=== PATIENT | male | born 1965 | race Caucasian/White ===

== ENCOUNTER → 2018-10-30 | Outpatient (CLI) | payer OTHER ==
[~2018-10-30] MED LIST: ? CHOLESTEROL MED; ALBU90OI61; Advil200 M1; FENO160; HYDACE5 PO; OMEP20ER PO; OXYACE5T PO; PIOG15; RANI150
== END | disposition home or self-care (01) ==
LOC: LAB SHORT 13:46 → PLD 13:46
DX: L57.8 Other skin changes due to chronic exposure to nonionizing radiation (principal)
CPT/HCPCS: 88305

== ENCOUNTER 2019-03-30 14:04 | Inpatient (IN) | payer OTHER ==
[~2019-03-30] VITALS: Ht 170.2 cm; Wt 82.7 kg
[~2019-03-30 14:04] MED LIST changes: -OMEP20ER PO
[2019-03-30 14:27] LABS: BASOPHILS ABSOLUTE AUTO 0.05 K/mm3 (0.00-0.23); BASOPHILS PERCENT AUTO 0 % (0-2); EOSINOPHILS ABSOLUTE AUTO 0.03 K/mm3 (0.00-0.68); EOSINOPHILS PERCENT AUTO 0 % (0-6); Hemoglobin 16.2 g/dL (13.5-17.5); IMMATURE GRAN ABSOLUTE AUTO 0.05 K/mm3 (0.00-0.10); IMMATURE GRAN PERCENT AUTO 0 % (0-1); LYMPHOCYTES ABSOLUTE AUTO 2.15 K/mm3 (0.84-5.20); LYMPHOCYTES PERCENT AUTO 17 % (21-46); MONOCYTES ABSOLUTE AUTO 0.76 K/mm3 (0.16-1.47); MONOCYTES PERCENT AUTO 6 % (4-13); Mean Corpuscular HGB 29.2 pg (26.0-34.0); Mean Corpuscular HGB Conc 33.1 g/dL (31.5-36.5); Mean Corpuscular Volume 88 fL (80-100); Mean Platelet Volume 10.7 fL (9.1-12.4); NEUTROPHILS ABSOLUTE AUTO 9.82 K/mm3 (1.96-9.15); NEUTROPHILS PERCENT AUTO 76 % (41-73); Platelet Count 228 K/mm3 (150-400); RDW Coefficient Variation 12.7 % (11.7-14.2); RDW Standard Deviation 41.2 fL (35.1-46.3); Red Blood Cell Count 5.54 M/mm3 (4.30-5.90); White Blood Cell Count 12.86 K/mm3 (4.00-11.30)
[2019-03-30 14:59] LABS: Alanine Aminotransfer (ALT/SGP 44 U/L (12-78); Albumin/Globulin Ratio 0.7 (0.8-1.8); Alk Phos 241 U/L (50-136); Anion Gap 7 mmol/L (6-16); Aspartate Aminotrans (AST/SGOT 31 U/L (12-37); Bilirubin, Total 0.4 mg/dL (0.1-1.0); Blood Urea Nitrogen 23 mg/dL (8-24); Bun/Creatinine Ratio 23.1 (12.0-20.0); CO2, Blood 27 mmol/L (21-32); Calcium, Blood 9.5 mg/dL (8.5-10.1); Chloride, Blood 100 mmol/L (98-108); Globulin, Blood 4.5 g/dL (2.2-4.0); Glomerular Filtration Rate >60 (60-); Glucose, Blood 434 mg/dL (70-99); Potassium, Blood 4.9 mmol/L (3.5-5.5); Sodium, Blood 134 mmol/L (136-145); Total Protein, Blood 7.5 g/dL (6.4-8.2)
[2019-03-30] MEDS ORDERED: SPIRIVA RESPIMAT4 GM INH (15:44)
[2019-03-30] MEDS ORDERED: INSULANPEN SC (15:54)
[2019-03-30] MEDS ORDERED: Metformin HCl500 MG PO (15:56)
[2019-03-30] MEDS ORDERED: BUPR150ER PO (16:03)
[2019-03-30] MEDS ORDERED: ATOR40TA PO (16:03)
[2019-03-30] MEDS ORDERED: Fish Oil 10001000 MG PO (16:04)
--- NOTE | 2019-03-30 18:56 | NUR ---
PATIENT ARRIVES ABOUT 1816 VIA W/C. ALERT AND ORIENTED. AMBULATORY W/STEADY GAIT. CRACKLES LOWER LOBES. BILATERAL TOES RED AND STS "HAVE DIABETES AND HAVE BEEN THAT WAY." DOES NOT TAKE ANY OF HIS MEDS. DINNER ORDERED. ORIENTED TO ROOM. AWARE TO CALL IF NEEDS TO USE BATHROOM. EXPLAINED STRICT I&O. WCTM.
--- NOTE | 2019-03-30 21:15 | NUR ---
PT ADAMANT ABOUT GOING OUTSIDE TO SMOKE. EDUCATED PT ON REPRECUSSIONS OF THIS AND WHY IT WAS IMPORTANT HE DID NOT GO OUTSIDE AND SMOKE. PT STILL CONTINUED TO GO OUTSIDE AND SAID HE WOULD BE BACK IN SEVERAL MINUTES. PT WAS ON 2 L OF O2 UP UNTIL THIS EVENING. ONLY SATTING 91% ON RA. PT ALSO HAS A HEART MONITOR ON WHICH DOES NOT GET READINGS ONCE OUTSIDE. PT UNDERSTANDS AND INSISTED REGARDLESS THAT HE WAS GOING OUTSIDE. PT WALKED OUTSIDE AT THIS TIME. DISCUSSED WITH HUMAN SERVICES ASSISTANT. WILL CALL MD TO SEE ABOUT GETTING A NICOTINE PATCH.
[2019-03-30 21:33] LABS: Glucose, Blood 496 mg/dL (70-99)
--- NOTE | 2019-03-30 22:25 | NUR ---
PT'S BLOOD SUGARS ELEVATED THIS EVENING. 434 DOWN IN ED AT 1410 AND PT DID NOT RECIEVE ANY COVERAGE AT THAT TIME. RECHECKED THIS EVENING AT 2012 AND CBG WAS 472. MEDICATED AT THAT TIME WITH 12 UNITS NOVOLOG AND 20 UNITS LANTUS. RECHECKED APPROX A HALF HOUR LATER AND PT'S CBG READ "HI" ON OUR MACHINES. LAB CAME TO DRAW TO CONFIRM AND PT'S BLOOD GLUCOSE WAS 496. NOTIFIED BRODY TURCIOS. NEW ORDERS TO CHANGE PT TO HSS HUMALOG AC & HS. RECHECK CBG IN ONE HOUR AND GIVE FIRST DOSE BASED ON HSS AND THEN TO RECHECK IN AM. PT ALSO AGREED TO WEAR NICOTINE PATCH. SPOKE WITH BRODY TURCIOS ABOUT THIS WELL. NEW ORDER FOR 21 MG NICOTINE PATCH. WILL PLACE ON PT.
[2019-03-31 05:21] LABS: BASOPHILS ABSOLUTE AUTO 0.02 K/mm3 (0.00-0.23); BASOPHILS PERCENT AUTO 0 % (0-2); EOSINOPHILS PERCENT AUTO 0 % (0-6); IMMATURE GRAN ABSOLUTE AUTO 0.06 K/mm3 (0.00-0.10); IMMATURE GRAN PERCENT AUTO 1 % (0-1); LYMPHOCYTES ABSOLUTE AUTO 0.83 K/mm3 (0.84-5.20); LYMPHOCYTES PERCENT AUTO 7 % (21-46); MONOCYTES ABSOLUTE AUTO 0.19 K/mm3 (0.16-1.47); MONOCYTES PERCENT AUTO 2 % (4-13); Mean Corpuscular HGB 28.6 pg (26.0-34.0); Mean Corpuscular HGB Conc 33.3 g/dL (31.5-36.5); Mean Corpuscular Volume 86 fL (80-100); Mean Platelet Volume 10.6 fL (9.1-12.4); NEUTROPHILS ABSOLUTE AUTO 10.46 K/mm3 (1.96-9.15); NEUTROPHILS PERCENT AUTO 91 % (41-73); Platelet Count 227 K/mm3 (150-400); RDW Coefficient Variation 12.8 % (11.7-14.2); RDW Standard Deviation 39.5 fL (35.1-46.3); Red Blood Cell Count 5.25 M/mm3 (4.30-5.90); White Blood Cell Count 11.56 K/mm3 (4.00-11.30)
[2019-03-31 05:45] LABS: Anion Gap 8 mmol/L (6-16); Blood Urea Nitrogen 29 mg/dL (8-24); CO2, Blood 27 mmol/L (21-32); Calcium, Blood 9.3 mg/dL (8.5-10.1); Chloride, Blood 102 mmol/L (98-108); Creatinine, Blood 0.73 mg/dL (0.60-1.20); Glomerular Filtration Rate >60 (60-); Glucose, Blood 276 mg/dL (70-99); Potassium, Blood 4.1 mmol/L (3.5-5.5); Sodium, Blood 137 mmol/L (136-145)
--- NOTE | 2019-03-31 06:16 | NUR ---
SHIFT SUMMARY PT VERY SET IN HIS OWN WAYS. NONCOMPLIANT DIABETIC AT HOME. BLOOD SUGARS VERY ELEVATED THIS EVENING, SEE NOTE. CONTINUE TO BE HIGH BUT IMPROVED THIS AM TO 276. PT INSISTENT ON GOING OUT TO SMOKE AT START OF SHIFT, WENT OUTSIDE ONCE THEN AGREED TO HAVE NICOTINE PATCH PLACED AND HAS REMAINED IN ROOM THE REST OF THE NIGHT. PT IS VERY HARD SLEEPER, DIFFICULT TO WAKE. PT REPORTS THAT THIS IS NORMAL FOR HIM. PT HAD APPROX 1 L OUT THIS EVENING. NO ACUTE CHANGES. VSS. WILL CONTINUE TO MONITOR.
--- NOTE | 2019-03-31 19:04 | NUR ---
SUMMARY- PT A/O X3- VAGUE ORIENTATION, POOR DECISION MAKING- STATES HE HAS A HARD TIME CONTROLLING DIABETES AT HOME BECAUSE HE FORGETS TO CHECK SUGARS AND THINKS IT'S NORMAL TO HAVE LEVELS ABOVE 400 AND NOTHING COULD BRING IT LOWER. RN DID ALOT OF VERBAL TEACHING ABOUT DIABETES AND SMOKING CESSATION. PT CONT TO GO OUT TO SMOKE APPROX 4 TIMES TODAY DESPITE PT'S STATING HE WAS GOING TO TRY TO QUIT. AWARE THAT HIS TELE DOESN'T AUTO BODY MAN SIGNAL AND HE IS AT RISK GOING OUTSIDE. PT TOLERATING FOOD AND FLUIDS. I/O EVEN THIS SHIFT- GETTING LASIX BID. BLOOD SUGARS LABILE, REQUIRING 10U REG BASE PLUS SS WITH MEALS. REPOTED TO BRENTON CASAS RN
--- NOTE | 2019-04-01 03:52 | NUR ---
SHIFT SUMMARY PT RETURNED FROM OUTSIDE SMOKING JUST AFTER SHIFT REPORT. PT WANTED NICOTINE PATCH REMOVED; DONE PER PT REQUEST. PT ADMITTED FOR ACUTE DIASTOLIC HF ON TELE. PT INFORMED OF NEED TO REMAIN IN RM OR AT LEAST IN RANGE, WHILE ON TELE; ST @ 102 PER MX TECH. PT HAS NOT GONE OUT TO K AGAIN, SINCE RETURNING AT START OF SHIFT. PT HAS DONE BETTER TONIGHT AND BEEN ABLE TO SLEEP MOST OF NIGHT. PT HAD BEEN VERY NONCOMPLIANT AND IMPULSIVE WHEN ADMITTED AND THRU OUT THE DAY YESTERDAY. APPEARED TO BE GRATEFUL THAT HIS CBG'S WERE IMPROVING, WHEN TALKING TO HIM AT HS. HOWEVER, PT DOES NOT SEEM TO UNDERSTAND HOW HIS CBG'S GET SO HIGH. PT IS INDEPENDENT IN RM AND TO BTHRM. DENIED FURTHER NEEDS. CALL LT IN REACH.
--- NOTE | 2019-04-01 17:07 | NUR ---
PATIENT WAS TO DISCHARGE AND AFTER FAMILY TALKED WITH HIM AND DOCTOR HE AGREED TO STAY AND CONTINUE WITH TREATMENT. CARDIOLOGY WAS PAGED TO INFORM OF THIS CHOICE AND OF THIS TIME HAS NOT HEARD BACK. PATIENT CONTINUES TO BE NON COMPLAINT WITH HIS CARES AND UNABLE TO PROCESS THE DEGREE OF HIS CONDITION DESPITE HAVING IT EXPLAINED SIMPLY POSSIBLE BY THIS NURSE AND BOTH DOCTORS. PATIENT HAS STATED HE IS ONLY LIVING FOR HIS CATS. FAMILY BEEN PRESENT WITH PATIENT THROUGH OUT THE DAY. MEDS HAVE BEEN LATE PATIENT WILL LEAVE THE BUILDING TO SMOKE AND NOT INFORM NURSE OR STAFF OF HIS DEPARTURES. HE HAS BEEN GIVEN A NICOTINE PATCH AND HAS REMOVED IT . PATIENT HAS BEEN EXPLAINED REGARDING HIS TELE BOX AND CONTINUES TO LEAVE TO SMOKE. PATIENT APPEARS TO NOT FULLY UNDERSTAND HIS CONDITION OR THE HELP HE IS NEEDING.
--- NOTE | 2019-04-01 17:57 | NUR ---
Initial Visit: Palliative Care Consult for Advanced Care Planning. Pt is A&O and reports 4/10 by pointing at smily faces on white board. Pt reports pain is in his chest. Pt reports 3/7 anxiety due to information from staff and difficulty understanding. Pt has developmental delay. Pt's sister Hailey is present during visit. Engaged in therapeutic discussion regarding advanced care planning in a slow easy to understand conversation for Pt. Pt reports that he lives at home alone and does not have any advent beliefs. He is independent of his ADL's. Asked Pt his goals regarding his heart health. Pt states he plans to do the procedures the doctors suggest. He states that he will do what the doctors suggest and take his medications so he can care for his cat. Pt reports difficulty remembering to take his medications and is in the process of applying for medicaid to receive assistance with caregivers. Educated Pt on repercussions of non compliance with doctor recommendations including losing the ability to care for his cat. Pt reports occasional suicidal ideation. Pt reports putting one of his guns to his head and thinks about pulling the trigger. He denies having these thoughts now. Explored reasons for suicidal thoughts and Pt states because he is alone. Pt reports that he used to see a councelor and take medications but stopped because of too many medications. He also states he would forget to take his medications. Explored Pt's willingness to start seeing councelor and taking medications again. Educated Pt on benefits of routine counceling and medications. Pt states if he only has to take 1 or 2 pills he would start back on medications for depression and see a councelor. Discussed safety plan with sister including taking weapons out of Pt's house. Pt is agreeable and sister Hailey states she can place guns in her gun safe. Hailey expresses concerns with medicaid process. She reports calling [employer] office and is concerned with the lengthy process and getting started. This RN handed a check list for information that will need to be obtained to start the application process. Hailey reports being overwhelmed with other family issues currently happening and is concerned with her ability to have time to provide needs for Pt until medicaid process is complete. Offered suggestions to start simple to keep from feeling overwhelmed. Suggested having other family members help by coming in and filling medication organizer once a week and checking in on Pt daily or every other day. At this time of conversation, Pt niece is present during visit and offers to help with this suggestion. Pt and family report no other concerns at this time. Spoke with Pt's bedside nurse Yenny and she reports no concerns at this time. Plan: Will collaborate with care management regarding medicaid process. Recommend referral for psych/social counseling upon discharge. Palliative Care will remain available for therapeutic visits.
[2019-04-02 04:54] LABS: Hematocrit 46.1 % (37.0-53.0); Hemoglobin 15.3 g/dL (13.5-17.5); Mean Corpuscular HGB 28.7 pg (26.0-34.0); Mean Corpuscular HGB Conc 33.2 g/dL (31.5-36.5); Mean Corpuscular Volume 87 fL (80-100); Mean Platelet Volume 10.7 fL (9.1-12.4); Platelet Count 237 K/mm3 (150-400); RDW Coefficient Variation 12.9 % (11.7-14.2); RDW Standard Deviation 40.3 fL (35.1-46.3); Red Blood Cell Count 5.33 M/mm3 (4.30-5.90); White Blood Cell Count 11.09 K/mm3 (4.00-11.30)
[2019-04-02 05:29] LABS: Anion Gap 5 mmol/L (6-16); Blood Urea Nitrogen 34 mg/dL (8-24); Bun/Creatinine Ratio 39.7 (12.0-20.0); CO2, Blood 31 mmol/L (21-32); Calcium, Blood 8.8 mg/dL (8.5-10.1); Chloride, Blood 98 mmol/L (98-108); Creatinine, Blood 0.86 mg/dL (0.60-1.20); Glomerular Filtration Rate >60 (60-); Glucose, Blood 130 mg/dL (70-99); Potassium, Blood 4.3 mmol/L (3.5-5.5); Sodium, Blood 134 mmol/L (136-145)
--- NOTE | 2019-04-02 05:57 | NUR ---
SHIFT SUMMARY PT REPORTED DIFFICULTY FALLING ASLEEP LAST NIGHT, EST 2-3 HRS SLEEP. AOX4, FOLLOWS DIRECTIONS, SLOW TO RESPOND TO QUESTIONS. SINUS TACH W/HR 107 PER PCU ECOMMER[employer] MARKETING SPECIALIST. DENIES NAUSEA. REPORTS OCCASIONAL SOB W/ACTIVITY, DENIES ANY @REST, SPO2 >90% ON RA WITH E/U RESPIRATIONS. REPORTS 5/10 PAIN IN CHEST THAT OCCASIONALLY COMES & GOES, DENIES ANY @REST OR THE NEED FOR PAIN MEDICATION. INDEPENDENT IN ROOM, HAS GONE FOR 1 WALK THIS EVENING. ENCOURAGED PT TO STAY IN HOSPITAL SINCE HE HAD TELEMETRY IN PLACE, PT VERBALIZED UNDERSTANDING. CALL LIGHT IN ROOM.
--- NOTE | 2019-04-02 11:32 | NUR ---
Pt visit this AM. Pt reports mild anxiety due to his blood sugar running a little low. He states feeling shaky. Pt's bedside nurse is aware and has received orders to help correct blood sugars. Family present during visit. Instructed Pt and family child care centre manager Vanesa will set up appointment for Pt at [facility] behavioral unit for psych/social counceling. Pt and family express appreciation and report no concerns at this time. Gave Pt phone number to crisis unit if suicidal thoughts come back. Palliative Care will remain available.
--- NOTE | 2019-04-02 13:28 | NUR ---
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 THE PATIENT IS BEING TRANSFERRED TO PCU #3 AFTER THE PROCEDURE. THE PATIENT'S BELONGINGS WERE ALL MOVED TO THAT ROOM.
--- NOTE | 2019-04-02 19:38 | NUR ---
SHIFT SUMMARY ASSUMED CARE OF PT FROM HEART CENTER. PT HAD DIAGNOSTIC ANGIOGRAM. VS STABLE. 02 SATS >90% ON RA. BP STABLE. HR NSR. PT DENIES ANY PAIN. TR BAND IN PLACE TO RIGHT WRIST WITH NO SIGNS OF BLEEDING, HEMATOMA FORMATION, OR BRUISING AT THIS TIME. CAP REFILL LESS THAN 3 SECONDS. BERTO DRESSING TO RIGHT AC FREE FROM ANY BLEEDING OR HEMATOMA FORMATION. RIGHT GROIN SITE IS FREE FROM ANY BLEEDING, BRUISING, OR HEMATOMA FORMATION. PT EDUCATED ABOUT RESTRICTIONS DUE TO ANGIOGRAM. REPORT GIVEN TO DRESSED POULTRY GRADER RN.
--- NOTE | 2019-04-02 23:05 | NUR ---
PT REQUESTING TO GO OUTSIDE. PT ADVISED TO STAY ON UNIT AND INFORMED THAT WE ARE UNABLE TO MONITOR HIS HEART WHILE OUTSIDE. PT EDUCATED ON SMOKING CESSATION. UNRECEPTIVE TO EDUCATION PROVIDED. PT ADAMANT ON LEAVING.
--- NOTE | 2019-04-03 04:56 | NUR ---
SHIFT SUMMARY: PT STABLE POST DIAGNOSTIC ANGIOGRAM. A&O X4, VS WNL. O2 SATS STABLE ON RA; PT DENIES SOB. TR BAND REMOVED FROM RIGHT WRIST. SITE FREE OF BLEEDING OR ANY HEMATOMA FORMATION. DRESSING COVERING ACCESS SITE. NSR PER ANTIQUE FURNITURE REPAIRER. BG OF 210 COVERED WITH SCHED LANTUS. PT INDEPENDENT IN ROOM. VOIDING WELL. PT REQUESTED TO GO OUTSIDE ONCE DURING SHIFT (SEE OTHER NOTE).
[2019-04-03 06:51] LABS: BASOPHILS ABSOLUTE AUTO 0.01 K/mm3 (0.00-0.23); BASOPHILS PERCENT AUTO 0 % (0-2); EOSINOPHILS ABSOLUTE AUTO 0.08 K/mm3 (0.00-0.68); EOSINOPHILS PERCENT AUTO 1 % (0-6); Hematocrit 47.2 % (37.0-53.0); Hemoglobin 15.4 g/dL (13.5-17.5); IMMATURE GRAN ABSOLUTE AUTO 0.04 K/mm3 (0.00-0.10); IMMATURE GRAN PERCENT AUTO 0 % (0-1); LYMPHOCYTES ABSOLUTE AUTO 1.73 K/mm3 (0.84-5.20); LYMPHOCYTES PERCENT AUTO 19 % (21-46); MONOCYTES ABSOLUTE AUTO 0.58 K/mm3 (0.16-1.47); MONOCYTES PERCENT AUTO 6 % (4-13); Mean Corpuscular HGB 28.8 pg (26.0-34.0); Mean Corpuscular HGB Conc 32.6 g/dL (31.5-36.5); Mean Corpuscular Volume 88 fL (80-100); Mean Platelet Volume 10.6 fL (9.1-12.4); NEUTROPHILS ABSOLUTE AUTO 6.66 K/mm3 (1.96-9.15); NEUTROPHILS PERCENT AUTO 73 % (41-73); Platelet Count 253 K/mm3 (150-400); RDW Coefficient Variation 12.8 % (11.7-14.2); RDW Standard Deviation 41.7 fL (35.1-46.3); Red Blood Cell Count 5.35 M/mm3 (4.30-5.90)
[2019-04-03 07:10] LABS: Anion Gap 4 mmol/L (6-16); Blood Urea Nitrogen 24 mg/dL (8-24); Bun/Creatinine Ratio 29.8 (12.0-20.0); CO2, Blood 31 mmol/L (21-32); Calcium, Blood 8.6 mg/dL (8.5-10.1); Chloride, Blood 100 mmol/L (98-108); Creatinine, Blood 0.81 mg/dL (0.60-1.20); Glomerular Filtration Rate >60 (60-); Glucose, Blood 194 mg/dL (70-99); Potassium, Blood 4.1 mmol/L (3.5-5.5); Sodium, Blood 135 mmol/L (136-145)
--- NOTE | 2019-04-03 08:26 | NUR ---
ASSUMED CARE OF PT- RECIEVED REPORT FROM NIGHT MEREDITH MONTOYA. PER REPORT PT IS A SMOKER AND HAS BEEN OUTSIDE SEVERAL TIMES TO SMOKE T/O THE NIGHT. PT HAS NO C/O PAIN, DENIES N/T AND HAS NO S&S OF DISTRESS NOTED AT THE TIME OF ASSESSMENT. PLAN IS FOR PT TO DC HOME TODAY.
[2019-04-03] MEDS ORDERED: Aspir 8181 MG PO (10:26)
[2019-04-03] MEDS ORDERED: FURO40 PO (10:27)
[2019-04-03] MEDS ORDERED: POTCHL20ER PO (10:29)
--- NOTE | 2019-04-03 11:07 | NUR ---
DISCHARGE NOTE- PT WAS GIVEN VERBAL AND WRITTEN DISCHARGE INSTRUCTIONS AND ACKNOWLEDGED UNDERSTANDING OF THEM, FAMILY PRESENT FOR DISCHARGE TEACHING. PT WILL BE ESCORTED OUT VIA W/C BY THE [facility] SHORTLY.
== END 2019-04-03 11:16 | disposition home or self-care (01) | DRG 292 ==
LOC: ER 14:04 → MEDS 16:44 → ENPENDDIS 04-01 11:37 → EDPENDDIS 04-01 11:37 → PCU 04-02 13:15
PROVIDERS: Emergency Medicine; Internal Medicine; Internal Medicine Cardiovascular Disease; ADMIT Hospitalist
DX: I11.0 Hypertensive heart disease with heart failure (principal); E87.1 Hypo-osmolality and hyponatremia; I50.33 Acute on chronic diastolic (congestive) heart failure; F17.210 Nicotine dependence, cigarettes, uncomplicated; E11.65 Type 2 diabetes mellitus with hyperglycemia; E87.70 Fluid overload, unspecified; I25.10 Atherosclerotic heart disease of native coronary artery without angina pectoris; E78.5 Hyperlipidemia, unspecified; Z79.4 Long term (current) use of insulin; Z68.28 Body mass index [BMI] 28.0-28.9, adult; E66.9 Obesity, unspecified; I08.3 Combined rheumatic disorders of mitral, aortic and tricuspid valves; F89 Unspecified disorder of psychological development; F63.0 Pathological gambling; J44.9 Chronic obstructive pulmonary disease, unspecified; Z79.82 Long term (current) use of aspirin
CPT/HCPCS: 36415; 71045; 80048; 80053; 82947; 83880; 84145; 84484; 85025; 85027; 93005; 93010; 93306; 93456; 93571; 94667; 94760; 96374; 96375; 98960; 99152; 99153; 99285-25; C1769; C1887; C1894; J1644; J1650; J1940; J2250; J2930; J3010; J7030; J7042; Q9967

== ENCOUNTER 2019-04-18 19:23 | Emergency (ER) | payer OTHER ==
[~2019-04-18] VITALS: Ht 160 cm; Wt 81.7 kg
[~2019-04-18 19:23] MED LIST changes: +ATOR40TA PO; +Aspir 8181 MG PO; +BUPR150ER PO; +FURO40 PO; +Fish Oil 10001000 MG PO; +INSULANPEN SC; +Metformin HCl500 MG PO; +POTCHL20ER PO; +SPIRIVA RESPIMAT4 GM INH
[2019-04-18 19:47] LABS: BASOPHILS ABSOLUTE AUTO 0.05 K/mm3 (0.00-0.23); BASOPHILS PERCENT AUTO 1 % (0-2); EOSINOPHILS ABSOLUTE AUTO 0.13 K/mm3 (0.00-0.68); EOSINOPHILS PERCENT AUTO 1 % (0-6); Hematocrit 43.6 % (37.0-53.0); Hemoglobin 14.1 g/dL (13.5-17.5); IMMATURE GRAN ABSOLUTE AUTO 0.04 K/mm3 (0.00-0.10); IMMATURE GRAN PERCENT AUTO 0 % (0-1); LYMPHOCYTES ABSOLUTE AUTO 2.11 K/mm3 (0.84-5.20); LYMPHOCYTES PERCENT AUTO 21 % (21-46); MONOCYTES ABSOLUTE AUTO 0.64 K/mm3 (0.16-1.47); MONOCYTES PERCENT AUTO 6 % (4-13); Mean Corpuscular HGB 28.3 pg (26.0-34.0); Mean Corpuscular HGB Conc 32.3 g/dL (31.5-36.5); Mean Corpuscular Volume 87 fL (80-100); Mean Platelet Volume 10.8 fL (9.1-12.4); NEUTROPHILS ABSOLUTE AUTO 7.11 K/mm3 (1.96-9.15); NEUTROPHILS PERCENT AUTO 71 % (41-73); Platelet Count 273 K/mm3 (150-400); RDW Coefficient Variation 13.1 % (11.7-14.2); RDW Standard Deviation 40.5 fL (35.1-46.3); Red Blood Cell Count 4.99 M/mm3 (4.30-5.90); White Blood Cell Count 10.08 K/mm3 (4.00-11.30)
[2019-04-18 20:10] LABS: Alanine Aminotransfer (ALT/SGP 42 U/L (12-78); Albumin, Blood 2.8 g/dL (3.4-5.0); Albumin/Globulin Ratio 0.7 (0.8-1.8); Alk Phos 423 U/L (50-136); Anion Gap 7 mmol/L (6-16); Aspartate Aminotrans (AST/SGOT 37 U/L (12-37); Bilirubin, Total 0.4 mg/dL (0.1-1.0); Blood Urea Nitrogen 26 mg/dL (8-24); CO2, Blood 26 mmol/L (21-32); Calcium, Blood 9.3 mg/dL (8.5-10.1); Chloride, Blood 100 mmol/L (98-108); Globulin, Blood 4.2 g/dL (2.2-4.0); Glomerular Filtration Rate >60 (60-); Glucose, Blood 375 mg/dL (70-99); Potassium, Blood 4.9 mmol/L (3.5-5.5); Sodium, Blood 133 mmol/L (136-145); Troponin I 0.035 ng/mL (0.000-0.040)
[2019-04-18] MEDS ORDERED: Lisinopril2.5 MG PO (20:37)
[2019-04-18] MEDS ORDERED: METO25ER PO (20:37)
[2019-04-18] MEDS ORDERED: Prednisone20 MG PO (21:36)
== END 2019-04-18 21:55 | disposition home or self-care (01) ==
LOC: ER 19:23
PROVIDERS: Emergency Medicine
DX: J44.1 Chronic obstructive pulmonary disease with (acute) exacerbation (principal); I50.9 Heart failure, unspecified; E11.9 Type 2 diabetes mellitus without complications; F17.200 Nicotine dependence, unspecified, uncomplicated; Z79.4 Long term (current) use of insulin; Z79.82 Long term (current) use of aspirin; Z79.899 Other long term (current) drug therapy
CPT/HCPCS: 36415; 71046; 80053; 83880; 84484; 85025; 93005; 93010; 94640; 96374; 99284-25; J2930

== ENCOUNTER 2019-06-03 13:30 | Inpatient (IN) | payer OTHER ==
[~2019-06-03] VITALS: Ht 162.6 cm; Wt 85.8 kg
[~2019-06-03 13:30] MED LIST changes: -ATOR40TA PO; -Aspir 8181 MG PO; -FURO40 PO; -Fish Oil 10001000 MG PO; -INSULANPEN SC; +Lisinopril2.5 MG PO; -Metformin HCl500 MG PO; -POTCHL20ER PO; +Prednisone20 MG PO; -SPIRIVA RESPIMAT4 GM INH
[2019-06-03 14:06] LABS: BASOPHILS ABSOLUTE AUTO 0.04 K/mm3 (0.00-0.23); BASOPHILS PERCENT AUTO 0 % (0-2); EOSINOPHILS ABSOLUTE AUTO 0.02 K/mm3 (0.00-0.68); EOSINOPHILS PERCENT AUTO 0 % (0-6); Hematocrit 44.1 % (37.0-53.0); Hemoglobin 14.2 g/dL (13.5-17.5); IMMATURE GRAN ABSOLUTE AUTO 0.04 K/mm3 (0.00-0.10); IMMATURE GRAN PERCENT AUTO 0 % (0-1); LYMPHOCYTES ABSOLUTE AUTO 1.48 K/mm3 (0.84-5.20); LYMPHOCYTES PERCENT AUTO 15 % (21-46); MONOCYTES ABSOLUTE AUTO 0.59 K/mm3 (0.16-1.47); MONOCYTES PERCENT AUTO 6 % (4-13); Mean Corpuscular HGB 28.6 pg (26.0-34.0); Mean Corpuscular HGB Conc 32.2 g/dL (31.5-36.5); Mean Corpuscular Volume 89 fL (80-100); Mean Platelet Volume 10.9 fL (9.1-12.4); NEUTROPHILS ABSOLUTE AUTO 7.81 K/mm3 (1.96-9.15); NEUTROPHILS PERCENT AUTO 78 % (41-73); Platelet Count 222 K/mm3 (150-400); RDW Standard Deviation 44.8 fL (35.1-46.3); Red Blood Cell Count 4.97 M/mm3 (4.30-5.90); White Blood Cell Count 9.98 K/mm3 (4.00-11.30)
[2019-06-03 14:25] LABS: Albumin, Blood 3.2 g/dL (3.4-5.0); Albumin/Globulin Ratio 0.9 (0.8-1.8); Bilirubin, Total 1.2 mg/dL (0.1-1.0); Bun/Creatinine Ratio 26.4 (12.0-20.0); Creatinine, Blood 1.48 mg/dL (0.60-1.20); Globulin, Blood 3.7 g/dL (2.2-4.0); Potassium, Blood 5.8 mmol/L (3.5-5.5); Total Protein, Blood 6.9 g/dL (6.4-8.2)
[2019-06-03] MEDS ORDERED: Flomax0.4 MG PO (15:42)
[2019-06-03 16:07] LABS: Bicarbonate Venous 21.1 mmol/L (24.0-30.0); PCO2 Venous 43.9 mmHg (38-42); PO2 Venous 105 mmHg (38-42); pH Blood Venous 7.31 (7.34-7.37)
[2019-06-03] MEDS ORDERED: Metformin HCl500 MG PO (17:02)
[2019-06-03] MEDS ORDERED: Zantac150 MG PO (17:02)
[2019-06-03] MEDS ORDERED: ATOR40TA PO (17:04)
[2019-06-03] MEDS ORDERED: Aspir 8181 MG PO (17:04)
[2019-06-03] MEDS ORDERED: FURO40 PO (17:04)
[2019-06-03] MEDS ORDERED: POTCHL20ER PO (17:04)
[2019-06-03] MEDS ORDERED: ENTRESTO 49 MG1 EACH PO (17:05)
[2019-06-03] MEDS ORDERED: METO25ER PO (17:05)
[2019-06-03] MEDS ORDERED: SPIRIVA RESPIMAT4 GM INH (17:06)
[2019-06-03] MEDS ORDERED: BUPR150ER PO (17:06)
[2019-06-03] MEDS ORDERED: Fish Oil 10001000 MG PO (17:11)
[2019-06-03] MEDS ORDERED: INSULANPEN SC (17:12)
[2019-06-03] MEDS ORDERED: OMEP20ER PO (17:36)
[2019-06-03 20:21] LABS: Bun/Creatinine Ratio 28.1 (12.0-20.0); Calcium, Blood 8.3 mg/dL (8.5-10.1); Creatinine, Blood 1.35 mg/dL (0.60-1.20); Potassium, Blood 5.4 mmol/L (3.5-5.5); Troponin I 0.054 ng/mL (0.000-0.040)
[2019-06-03] MEDS ORDERED: ATOR20 PO (21:03)
[2019-06-03] MEDS ORDERED: POTA10T PO (21:07)
[2019-06-03] MEDS ORDERED: Zantac150 MG (21:09)
[2019-06-03 21:39] LABS: Source, Urine Clean Catch
[2019-06-03 21:43] LABS: Bilirubin, Urine Neg (Neg); Blood, Urine Neg (Neg); Glucose Qualitative, Urine 4+ (Neg); Ketones, Urine Neg (Neg); Leukocyte Esterase, Urine Neg (Neg); Nitrite, Urine Neg (Neg); Protein, Urine 3+ (Neg); Urobilinogen, Urine 1+ (Normal)
[2019-06-03 21:51] LABS: Color, Urine Yellow (P-Yellow)
[2019-06-03 21:52] LABS: Appearance, Urine Clear (Clear)
[2019-06-03 21:53] LABS: Bacteria Rare /hpf; Hyaline Casts 0-2 /lpf (0-2); Red Blood Cells, Urine 0-2 /hpf (0-2); Squamous Epithelial Cells Rare /hpf (Few); White Blood Cells, Urine 0-2 /hpf (0-5)
[2019-06-03 22:21] LABS: Glucose, Blood 509 mg/dL (70-99)
--- NOTE | 2019-06-03 22:31 | NUR ---
BLOOD GLUCOSE >500: HOSPITALIST NOTIFIED. ORDERS TO GIVE THE LANTUS 10u AND SCALE COVERAGE OF HUMALOG 12u. RECHECK IN ONE HOUR THEN CALL BACK WITH RESULTS.
--- NOTE | 2019-06-04 00:24 | NUR ---
HOSPITALIST NOTIFIED: RE: BLOOD GLUCOSE RECHECK OF 462. ORDERS TO COVER WITH HULALOG 12u NOW, RECHECK IN TWO HOURS. CALL WITH RESULTS.
[2019-06-04 03:30] LABS: Hematocrit 43.4 % (37.0-53.0); Mean Corpuscular HGB 29.3 pg (26.0-34.0); Mean Corpuscular HGB Conc 32.3 g/dL (31.5-36.5); Mean Corpuscular Volume 91 fL (80-100); Mean Platelet Volume 10.7 fL (9.1-12.4); Platelet Count 232 K/mm3 (150-400); RDW Coefficient Variation 13.9 % (11.7-14.2); RDW Standard Deviation 46.3 fL (35.1-46.3); Red Blood Cell Count 4.78 M/mm3 (4.30-5.90); White Blood Cell Count 8.96 K/mm3 (4.00-11.30)
[2019-06-04 03:52] LABS: Calcium, Blood 8.4 mg/dL (8.5-10.1); Creatinine, Blood 1.43 mg/dL (0.60-1.20); Potassium, Blood 4.6 mmol/L (3.5-5.5); Troponin I 0.065 ng/mL (0.000-0.040)
--- NOTE | 2019-06-04 05:20 | NUR ---
SHIFT SUMMARY: PT REMAINS HYPOTENSIVE BUT ASYMPTOMATIC. PT UP IN AND OUT OF BED WITH NO SYPTOMS. PT HAS SLEPT OFF AND ON T/O NOC, WATCHING TV WHEN AWAKE. PT DENIES PAIN AND/OR ANY OTHER DISCOMFORTS USING CALL LIGHT APPROPRIATELY.
--- NOTE | 2019-06-04 06:31 | NUR ---
CP: WALKED IN ROOM PT AWAKE LYING ON HIS LEFT SIDE C/O CP AND POINTED TO LOWER STERNUM. PT DESCRIBE PAIN SHARP. DENIED PAIN RADIATION. PT SLIGHTLY DIAPHORETIC. BP 85/62, HR 93, SATS 98% ON RA RR 22. PT DENIED PAIN FEELING LIKE ACID REFLUX. PT SAT UP IN UPRIGHT POSITION. POC GLUCOSE 135. EKG DONE WITH NOT ACUTE CHANGES FROM PRIOR EKG. PT STATED PAIN BETTER AFTER SITTING UP FOR A WHILE. PROTONIX GIVEN. WILL CONTINUE TO MONITOR.
--- NOTE | 2019-06-04 10:33 | NUR ---
0730: CARE ASSUMED, PT SLEEPING. BP HYPOTENSIVE BUT UNCHANGED. 0800: ASSESSMENT COMPLETED, PT ALERT AND ORIENTED, DENIES CHEST PAIN/PRESSURE, REPORTS SOB WITH EXERTION AND LOOSE COUGH ARE BASELINE. HRR SINUS 80'S - 90'S, SPO2 MID 90'S ON RA. BP REMAINS HYPOTENSIVE, PT ASYMPTOMATIC. 0930: PT TOLERATED BREAKFAST WELL, DENIES NAUSEA OR ABD PAIN. DR. FUENTES AND DR. GLORIA IN TO SEE PT, NEW ORDERS RECEIVED. PT UP TO SHOWER. 1000: PT TOLERATED SHOWER WELL, IVF INFUSING PER ORDERS, SBP REMAINS 80'S-90'S, PT DENIES SYMPTOMS, IS SITTING UP IN CHAIR VISITING WITH CAREGIVER, DENIES NEEDS OR C/O. 1045: PT RECEIVING ECHO.
--- NOTE | 2019-06-04 13:39 | NUR ---
1230: PT FINISHED LUNCH WITHOUT DIFFICULTY, DENIES ABD PAIN/NAUSEA AFTER EATING. BP REMAINS HYPOTENSIVE, MAP STABLE, PT ASYMPTOMATIC. LS CLEAR AT THIS TIME, PT ONLY COUGING OCCASIONALLY, DENIES SOB AT REST, SPO2 MID 90'S ON RA. NS INFUSING PER ORDERS. 1345: PT SLEEPING AT THIS TIME, BP HYPOTENSIVE, MAP 68, OTHER VSS. ABD US TO BE DONE TOMORROW MORNING AFTER PT NPO X8 HOURS, OK PER DR. GLORIA.
--- NOTE | 2019-06-04 14:30 | NUR ---
Echocardiogram completed.
--- NOTE | 2019-06-04 16:18 | NUR ---
PT REMAINS UP IN CHAIR, DENIES SOB, CP, AND CHEST PRESSURE. HR 100 SINUS, MAP 78, SPO2 97% RA. FINE CRACKLES NOTED IN BASES BILAT, EDEMA TO LE'S UNCHANGED FROM THIS MORNING. PT DENIES NEEDS, ALERT AND ORIENTED X4, APPROPRIATE.
--- NOTE | 2019-06-04 17:08 | NUR ---
DR. FUENTES AT BEDSIDE TO ASSESS PT, SBP 112 BY PALP. PT SITTING UP IN CHAIR, DENIES DIZZINESS, NAUSEA, FEELING LIGHT HEADED, AND DIAPHORESIS, COLOR IS GOOD. HR 100 SINUS, SPO2 96% RA. PT AND NIECE GIVEN ECHO RESULTS, SEVERITY OF CONDITION AND IMPORTANCE OF VALVE REPLACEMENT DISCUSSED BY WITH PT AND NIECE WHO IS PT'S CAREGIVER.
--- NOTE | 2019-06-04 18:57 | NUR ---
PT REMAINS UP IN CHAIR WATCHING TV, DENIES CHEST PAIN/PRESSURE AND SOB AT REST. MAP 77, HR 90'S SINUS, SPO2 96% RA. REPORT GIVEN TO ONCOMING SHIFT.
--- NOTE | 2019-06-04 19:20 | NUR ---
ASSESSMENT/ASSUMED CARE PT SITTING UP IN CHAIR, DENIES PAIN OR DISCOMFORT. STATES,"I'M FEELING A LOT BETTER". LUNGS CLEAR DECREASED IN THE BASES ON ROOM AIR. RESP EVEN AND NONLABORED. HEART RATE REGULAR. DENIES CHEST PAIN OR PRESSURE. VSS. MANUAL BP 105/62. BT+ DENIES N/V. PT SALINE LOCKED. UP IN ROOM AD LYNDON. PT TO BE NPO AFTER MIDNIGHT FOR ABD US IN AM.
--- NOTE | 2019-06-04 19:40 | NUR ---
REPORT GIVEN TO LISA HARPER WHO IS ASSUMING CARE OF PT
--- NOTE | 2019-06-04 19:45 | NUR ---
ASSUMED CARE RECEIVED REPORT FROM MELCHOR HARPER. PT ALERT AND ORIENTED TO SELF, SITUATION AND PLACE. REPORTS NO PAIN, SOB, NAUSEA, OR N/T. SALINE LOCKED. LAST BP WAS STABLE. STRONG PULSES. BED LOW AND LOCKED, CALL LIGHT WITHIN REACH.
[2019-06-05 03:38] LABS: BASOPHILS ABSOLUTE AUTO 0.04 K/mm3 (0.00-0.23); BASOPHILS PERCENT AUTO 1 % (0-2); EOSINOPHILS PERCENT AUTO 1 % (0-6); Hematocrit 43.3 % (37.0-53.0); Hemoglobin 13.9 g/dL (13.5-17.5); IMMATURE GRAN ABSOLUTE AUTO 0.02 K/mm3 (0.00-0.10); IMMATURE GRAN PERCENT AUTO 0 % (0-1); LYMPHOCYTES ABSOLUTE AUTO 1.96 K/mm3 (0.84-5.20); LYMPHOCYTES PERCENT AUTO 23 % (21-46); MONOCYTES ABSOLUTE AUTO 0.55 K/mm3 (0.16-1.47); MONOCYTES PERCENT AUTO 7 % (4-13); Mean Corpuscular HGB Conc 32.1 g/dL (31.5-36.5); Mean Corpuscular Volume 90 fL (80-100); Mean Platelet Volume 10.8 fL (9.1-12.4); NEUTROPHILS ABSOLUTE AUTO 5.72 K/mm3 (1.96-9.15); NEUTROPHILS PERCENT AUTO 68 % (41-73); Platelet Count 200 K/mm3 (150-400); RDW Coefficient Variation 14.2 % (11.7-14.2); RDW Standard Deviation 46.6 fL (35.1-46.3); Red Blood Cell Count 4.79 M/mm3 (4.30-5.90); White Blood Cell Count 8.39 K/mm3 (4.00-11.30)
[2019-06-05 03:59] LABS: Alanine Aminotransfer (ALT/SGP 63 U/L (12-78); Albumin, Blood 2.8 g/dL (3.4-5.0); Albumin/Globulin Ratio 0.8 (0.8-1.8); Alk Phos 420 U/L (50-136); Anion Gap 8 mmol/L (6-16); Aspartate Aminotrans (AST/SGOT 41 U/L (12-37); Bilirubin, Total 0.7 mg/dL (0.1-1.0); Blood Urea Nitrogen 40 mg/dL (8-24); Bun/Creatinine Ratio 31.7 (12.0-20.0); CO2, Blood 24 mmol/L (21-32); Chloride, Blood 104 mmol/L (98-108); Creatinine, Blood 1.26 mg/dL (0.60-1.20); Globulin, Blood 3.6 g/dL (2.2-4.0); Glomerular Filtration Rate >60 (60-); Glucose, Blood 177 mg/dL (70-99); Potassium, Blood 4.4 mmol/L (3.5-5.5); Sodium, Blood 136 mmol/L (136-145); Total Protein, Blood 6.4 g/dL (6.4-8.2)
--- NOTE | 2019-06-05 05:34 | NUR ---
SHIFT SUMMARY NO ACUTE CHANGES. PT STRUGGLED TO SLEEP OVERNIGHT. UP TO CHAIR A FEW TIMES, WATCHING TV. MANUAL BP'S TAKEN Q4H; PRESSURES SOFT, BUT STABLE. LUNG SOUNDS REMAIN CLEAR, AND DIMINISHED IN BASES. DENIES SOB, CP, N/T, NAUSEA, AND ABDOMINAL PAIN. ULTRASOUND IN THE AM, CURRENTLY NPO (FROM MIDNIGHT ON). IV SITES WNL, SALINE LOCKED. ALERT AND ORIENTED TO PLACE, SELF, SITUATION, AND FOLLOWS DIRECTIONS. WEAK, BUT PALPABLE PULSES IN FEET; MINIMAL SWELLING. BED LOW AND LOCKED, CALL LIGHT WITHIN REACH.
--- NOTE | 2019-06-05 07:32 | NUR ---
START OF SHIFT NOTE: RECEIVED REPORT FROM MEREDITH GONZALEZ, ASSUMED CARE, PATIENT IS [place], INDEPENDENT IN ROOM, SITTING UP IN CHAIR, ALERT AND ORIENTED BUT APPEARS SLIGHTLY SLOW IN ANSWERING, STATES THAT HE "LIVES WITH A CAREGIVER AND HIS SISTER LOOKS AFTER HIM", LUNG SOUNDS CLEAR IN ALL AMBRIZ, ST WITH HR IN 90'S, BLOOD PRESSURE IN LOW TO UPPER 100'S, BOWEL TONES HYPOACTIVE, USES URINAL TO VOID, DENIES ANY PAIN, DISCOMFORT, REPORTS NO N/V, NO CHEST PAIN/PRESSURE REPORTED, AFEBRILE, BLOOD GLUCOSE CHECKED WITH RESULT OF 144, PATIENT STATES "THAT IS GREAT, USUALLY IT IS IN THE 500'S AT HOME", DR. FUENTES AT BEDSIDE TO SEE PATIENT, IMAGING IN TO DO ORDERED ABDOMINAL ULTRASOUND, CALL LIGHT IN REACH, WILL CONTINUE TO MONITOR.
--- NOTE | 2019-06-05 08:26 | NUR ---
PATIENT ATE BREAKFAST WITH GOOD APPETITE, TOOK AM MEDICATIONS WITHOUT ANY PROBLEM SWALLOWING, VERY COOPERATIVE, CONTINUES UP IN CHAIR, WATCHING TV, CALL LIGHT IN REACH, WILL CONTINUE TO MONITOR.
--- NOTE | 2019-06-05 08:30 | NUR ---
DR. GLORIA IN TO SEE PATIENT, NO NEW ORDERS RECEIVED.
[2019-06-05 10:35] LABS: PCO2 Arterial 46.3 mmHg (35-45); PO2 Arterial 373 mmHg (80-100)
[2019-06-05 10:36] LABS: pH Blood Arterial 7.23 (7.35-7.45)
[2019-06-05 10:58] LABS: Albumin, Blood 2.9 g/dL (3.4-5.0); Anion Gap 7 mmol/L (6-16); Blood Urea Nitrogen 40 mg/dL (8-24); Bun/Creatinine Ratio 32.3 (12.0-20.0); CO2, Blood 23 mmol/L (21-32); Calcium, Blood 8.4 mg/dL (8.5-10.1); Chloride, Blood 106 mmol/L (98-108); Creatinine, Blood 1.24 mg/dL (0.60-1.20); Glomerular Filtration Rate >60 (60-); Glucose, Blood 180 mg/dL (70-99); Phosphorus, Blood 3.4 mg/dL (2.5-4.9); Potassium, Blood 4.5 mmol/L (3.5-5.5); Sodium, Blood 136 mmol/L (136-145)
[2019-06-05 11:02] LABS: Source, Urine Catheter
[2019-06-05 11:05] LABS: Appearance, Urine Hazy (Clear); Bilirubin, Urine Neg (Neg); Blood, Urine 2+ (Neg); Color, Urine Yellow (P-Yellow); Glucose Qualitative, Urine 2+ (Neg); Ketones, Urine 1+ (Neg); Leukocyte Esterase, Urine Neg (Neg); Nitrite, Urine Neg (Neg); Protein, Urine 3+ (Neg); Urobilinogen, Urine NORM (Normal)
[2019-06-05 11:14] LABS: Amorphous Mod (0-Heavy); Bacteria Mod /hpf; Squamous Epithelial Cells Rare /hpf (Few); White Blood Cells, Urine 0-2 /hpf (0-5)
[2019-06-05 11:15] LABS: Mucus Light (0-Heavy)
[2019-06-05 11:46] LABS: BASOPHILS ABSOLUTE AUTO 0.05 K/mm3 (0.00-0.23); BASOPHILS PERCENT AUTO 1 % (0-2); EOSINOPHILS ABSOLUTE AUTO 0.06 K/mm3 (0.00-0.68); EOSINOPHILS PERCENT AUTO 1 % (0-6); Hematocrit 46.6 % (37.0-53.0); Hemoglobin 14.9 g/dL (13.5-17.5); IMMATURE GRAN ABSOLUTE AUTO 0.06 K/mm3 (0.00-0.10); IMMATURE GRAN PERCENT AUTO 1 % (0-1); LYMPHOCYTES ABSOLUTE AUTO 2.04 K/mm3 (0.84-5.20); LYMPHOCYTES PERCENT AUTO 19 % (21-46); MONOCYTES ABSOLUTE AUTO 0.63 K/mm3 (0.16-1.47); MONOCYTES PERCENT AUTO 6 % (4-13); Mean Corpuscular HGB 29.1 pg (26.0-34.0); Mean Corpuscular Volume 91 fL (80-100); Mean Platelet Volume 11.1 fL (9.1-12.4); NEUTROPHILS ABSOLUTE AUTO 8.14 K/mm3 (1.96-9.15); NEUTROPHILS PERCENT AUTO 74 % (41-73); Platelet Count 263 K/mm3 (150-400); RDW Coefficient Variation 14.4 % (11.7-14.2); RDW Standard Deviation 47.1 fL (35.1-46.3); Red Blood Cell Count 5.12 M/mm3 (4.30-5.90); White Blood Cell Count 10.98 K/mm3 (4.00-11.30)
[2019-06-05 11:55] LABS: International Normalized Ratio 1.08; Prothrombin Time Results 11.4 Sec (9.7-11.5)
--- NOTE | 2019-06-05 12:08 | NUR ---
DR. HAHN OF [facility] REQUESTED PATIENT BE SENT BY HELICOPTER. AT 1205 WE WERE NOTIFIED THAT THE HELICOPTER WOULD BE HERE IN 30 MINUTES. PATIENT IS TO BE TAKEN TO SURGICAL ICU 4203. REPORT TO BE GIVEN TO AMBER [phone]
[2019-06-05 12:52] LABS: Albumin, Blood 3.1 g/dL (3.4-5.0); Albumin/Globulin Ratio 0.8 (0.8-1.8); Bilirubin, Direct 0.3 mg/dL (0.0-0.3); Bilirubin, Indirect 0.6 mg/dL (0.1-0.7); Bilirubin, Total 0.9 mg/dL (0.1-1.0); Globulin, Blood 3.9 g/dL (2.2-4.0); Troponin I 0.029 ng/mL (0.000-0.040)
--- NOTE | 2019-06-05 12:58 | NUR ---
PATIENT WAS SITTING IN CHAIR AFTER BREAKFAST WHEN HE SLID TO THE FLOOR AND WAS FOUND TO HAVE A LEFT SIDED FACIAL DROOP AND WAS UNABLE TO MOVE HIS LEFT ARM OR HIS LEFT LEG, PLACED INTO BED VIA CEILING LIFT, STROKE PROTOCOL INITIATED, DR. LAGUNAS AT BEDSIDE, PATIENT TO CT VIA BED, RECEIVED 1 MG [address] IV IN CT D/T HEAVY AGITATION, RETURNED TO ROOM, ESCAMILLA CATHETER PLACED, PIV'S X 2 STARTED ON LEFT HAND AND LEFT FOREARM, BOTH ARE 20 G, LAB IN TO DRAW ORDERED BLOOD SAMPLES, RT IN TO DRAW ABG'S AND PLACE PATIENT ON BIPAP PER DR. 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 GLORIA NOTIFIED, AND IN TO TRANSFER PATIENT, PATIENT ACCEPTED AT [facility], TO BE TRANSPORTED VIA [facility], PATIENT CONTINUED TO BE AGITATED AND BLOOD PRESSURES IN 200'S, UNABLE TO START TPA WITH THESE PRESSURES, PATIENT WAS INTUBATED AT 1143, RECEIVED 20 MG OF ETOMIDATE IV FOLLOWED BY 20 MG OF ROCURONIUM IV, ETT TUBE PLACE AT 1145, TUBE SIZE 8.0 BILATERAL BREATH SOUNDS WITH COLOR CHANGE, ETT AT 25 CM AT THE LIP, BLOOD PRESSURES DOWN TO 100'S AND 120'S, ALTEPLACE BOLUS 8MG/8ML WAS GIVEN OVER ONE MINUTE AT 1146, FOLLOWED BY IV INFUSION OF ALTEPLACE 1147 69 MG/69ML'S, PATIENT DID NOT RECEIVE PROPOFOL D/T LOWER BLOOD PRESSURES, BUT RECEIVED 25 MCG OF FENTANYL ONCE, PATIENT'S FAMILY WAS NOTIFIED AND AT BEDSIDE BRIEFLY, UPDATED ON PATIENT CONDITION BY DR. LAGUNAS AND DR. GLORIA, REPORT WAS CALLED TO [facility] BY THIS RN AT 1240, THIS RN SPOKE WITH MEREDITH CLARK, ON SURGICAL ICU AT [facility], [facility] CREW ARRIVED AT 1241, PATIENT WAS READIED FOR TRANSPORT, REPORT GIVEN TO [facility] RN, THEY LEFT WITH PATIENT ON GURNEY AT 1257, ALL BELONGINGS WITH PATIENT.
== END 2019-06-05 12:58 | disposition short-term general hospital (02) | DRG 682 ==
LOC: ER 13:30 → ICUE 17:21 → ERHOLD 17:21 → ICUE 20:22
PROVIDERS: Emergency Medicine; Internal Medicine; Internal Medicine Cardiovascular Disease; Internal Medicine Pulmonary Disease; Physician Assistant; ADMIT Internal Medicine
PROC: 0BH17EZ Insertion of Endotracheal Airway into Trachea, Via Natural or Artificial Opening (ICD-10-PCS; principal; 2019-06-05)
PROC: 5A1935Z Respiratory Ventilation, Less than 24 Consecutive Hours (ICD-10-PCS; 2019-06-05)
DX: N17.9 Acute kidney failure, unspecified (principal); I50.43 Acute on chronic combined systolic (congestive) and diastolic (congestive) heart failure; I63.311 Cerebral infarction due to thrombosis of right middle cerebral artery; E87.1 Hypo-osmolality and hyponatremia; E87.2 Acidosis; G81.94 Hemiplegia, unspecified affecting left nondominant side; I42.8 Other cardiomyopathies; I35.0 Nonrheumatic aortic (valve) stenosis; I11.0 Hypertensive heart disease with heart failure; Z79.82 Long term (current) use of aspirin; Z79.4 Long term (current) use of insulin; E11.65 Type 2 diabetes mellitus with hyperglycemia; I95.9 Hypotension, unspecified; K21.9 Gastro-esophageal reflux disease without esophagitis; F63.0 Pathological gambling; F89 Unspecified disorder of psychological development; E66.9 Obesity, unspecified; Z68.30 Body mass index [BMI] 30.0-30.9, adult; J44.9 Chronic obstructive pulmonary disease, unspecified; E11.40 Type 2 diabetes mellitus with diabetic neuropathy, unspecified; R13.10 Dysphagia, unspecified; I27.20 Pulmonary hypertension, unspecified; E78.5 Hyperlipidemia, unspecified; K44.9 Diaphragmatic hernia without obstruction or gangrene; F17.210 Nicotine dependence, cigarettes, uncomplicated; Z91.19 Patient's noncompliance with other medical treatment and regimen; R45.1 Restlessness and agitation; E86.0 Dehydration; N28.9 Disorder of kidney and ureter, unspecified; R74.0 Nonspecific elevation of levels of transaminase and lactic acid dehydrogenase [LDH]; K74.3 Primary biliary cirrhosis
CPT/HCPCS: 31500; 31720; 36415; 36600; 51702; 70450; 71045; 76700; 80048; 80053; 80069; 80076; 81001; 82010; 82803; 82947; 83605; 83690; 83880; 84100; 84484; 85025; 85027; 85610; 85730; 87086; 93005; 93010; 93306; 94002; 94640; 94660; 96361; 96372-59; 96374; 99285-25; C9113; G0480; J0330; J1644; J2060; J2405; J2704; J3010; J7030